=== PATIENT | male | born 1940 | race Caucasian/White ===

== ENCOUNTER 2016-10-04 11:26 | Emergency (ER) | payer BC, MEDICARE ==
[~2016-10-04] VITALS: Ht 170.2 cm; Wt 83.0 kg
[2016-10-04 11:29] VITALS: BP 123/69; PULSE 72; RESP 14; TEMP 98; O2SAT 97
--- NOTE | 2016-10-04 12:55 | PD ---
HPI Chief Complaint: Pain: Acute or Chronic Time Seen by Provider: 12:54 Travel History International Travel<30 days: No Contact w/Intl Traveler<30days: No Traveled to known affect area: No History of Present Illness HPI 76-year-old male presents to emergency Department with complaint of pain to his right buttock that radiates down the back of his right leg 2 weeks. He has been seen in urgent care twice in the last 2 weeks and was given oral steroids, muscle relaxers, and anti-inflammatories with improvement in symptoms. The patient states he was washing his car the other day and exacerbated the pain. Denies paresthesias, loss of sensation, decreased range of motion, decreased strength to bilateral lower extremities. Denies IV drug use. Denies cancer. Denies fever, chills, nausea, vomiting, abdominal pain. Pain is aggravated with walking, certain movements, and palpation. Has taken warm baths and use heating pad with some relief. Says Advil and muscle relaxers working the best. Denies encopresis, incontinence, saddle anesthesias. Allergies to Bactrim. Primary care provider is [facility]. No other modifying factors or associated signs and symptoms. PFSH Past Medical History Cardiovascular Problems: Yes (MURMUR ) Social History Tobacco Use: No Allergies-Medications (Allergen,Severity, Reaction): Coded Allergies: Bactrim (Verified Allergy, Unknown, 10/04/16) Reported Meds & Prescriptions Reported Meds & Active Scripts Active Ibuprofen 600 Mg Tab 600 Mg PO Q6H PRN Robaxin (Methocarbamol) 500 Mg Tab 500 Mg PO TID PRN Review of Systems Except as stated in HPI: all other systems reviewed are Neg Physical Exam Narrative GENERAL: Well-nourished, well-developed patient, in no acute distress; afebrile , nontoxic-appearing SKIN: Warm and dry. HEAD: Atraumatic. Normocephalic. EYES: Pupils equal and round. No scleral icterus. No injection or drainage. ENT: Mucosa pink and moist. Airway patent. NECK: Trachea midline. CARDIOVASCULAR: Regular rate. RESPIRATORY: No accessory muscle use. GASTROINTESTINAL: Flat. MUSCULOSKELETAL: Bilateral lower extremities supple and non-tense with 2+ pedal pulses and sensory intact; with full range of motion and 5/5 strength. Active dorsiflexion and extension of bilateral feet. Right straight leg raise is positive for low back pain. Ambulatory with limp to right leg. Sitting up in bed at 90. No obvious deformities. No clubbing. No cyanosis. No edema. BACK: No midline point tenderness on palpation of the lumbar, thoracic, or cervical spine. Tenderness on palpation of right iliosacral area. No obvious deformities. NEUROLOGICAL: Awake and alert. Oriented 3. No obvious cranial nerve deficits. Motor grossly within normal limits. Normal speech. Moves all extremities. 5/5 strength to all extremities. Sensory intact. PSYCHIATRIC: Appropriate mood and affect; insight and judgment normal. Data Data Last Documented VS Vital Signs Date Time Temp Pulse Resp B/P Pulse Ox O2 Delivery O2 Flow Rate FiO2 10/04/16 12:54 80 10/04/16 11:29 98.0 14 123/69 97 Room Air Orders Ketorolac Inj (Toradol Inj) (10/04/16 13:00) Orphenadrine Inj (Norflex Inj) (10/04/16 13:00) MDM Medical Decision Making Medical Screen Exam Complete: Yes Emergency Medical Condition: Yes Medical Record Reviewed: Yes Differential Diagnosis Sciatica, lumbar radiculopathy, low back strain, acute low back pain Narrative Course 76-year-old male physical exam consistent with right-sided sciatica. Denies encopresis, incontinence, saddle anesthesias. Denies IV drug use. Denies cancer. Denies fever, chills, nausea, vomiting, abdominal pain. Toradol and Norflex administered in the ER. Ibuprofen and Robaxin prescribed for home. Patient is medically cleared and stable for discharge. Discussed reasons to return to the emergency department. Instructed patient to follow up with primary care provider. Patient agrees with treatment plan. The patients vital signs are stable and the patient is stable for outpatient follow-up and treatment. Patient discharged home, stable and in no acute distress. Diagnosis Primary Impression: Right sided sciatica Referrals: Primary Care Physician Patient Instructions: Sciatica (ED) Additional Instructions: Tylenol or ibuprofen as directed and as needed for pain Heating pad and/or ice to affected area to reduce pain Avoid aggravating activities; increase activity as tolerated Follow-up with primary care provider Return to emergency department immediately with worsening of symptoms Med/Other Pt SpecificInfo: Prescription(s) given Scripts Ibuprofen 600 Mg [id number] Mg PO Q6H PRN (PAIN SCALE 1 TO 10) #30 TAB Ref 0 Prov:Rassi,Nany K [employer] 10/04/16 Methocarbamol (Robaxin)500 Mg [id number] Mg PO TID PRN (MUSCLE SPASM) #30 TAB Ref 0 Prov:Nnay Mckeon 10/04/16 Disposition: 01 DISCHARGE HOME Condition: Stable Nany Mckeon Oct 04, 2016 12:55
[2016-10-04] MEDS ORDERED: IBUP-232 PO (12:57)
[2016-10-04] MEDS ORDERED: ROBA500T PO (12:57)
[2016-10-04] MEDS ORDERED: KETOROLAC TROMETHAMINE 60 MG/2 ML (IM) VIAL IM ONE (13:00)
[2016-10-04] MEDS ORDERED: ORPHENADRINE INJ 60 MG/2 ML AMP IM ONE (13:00)
== END 2016-10-04 14:22 | disposition home or self-care (01) ==
LOC: NEPB 11:26
DX: M54.31 Sciatica, right side (principal)
CPT/HCPCS: 96372; 99283; J1885; J2360